=== PATIENT | male | born 1985 | race Caucasian/White ===

== ENCOUNTER 2017-12-13 13:10 | Emergency (ER) | payer BC ==
[~2017-12-13] VITALS: Ht 188 cm; Wt 102.0 kg
[~2017-12-13 13:10] MED LIST: BENADRYL 50MG C50 MG OR; CEPHALEXIN500 MG OR; LORTAB5 PO; NO; PERCOCET1 TA2 PO
[2017-12-13 13:57] LABS: HEMATOCRIT 42.7 % (39.0-50.0); HEMOGLOBIN 13.9 g/dl (14.0-18.0); IMMATURE GRANULOCYTES 0.2 % (0.0-1.0); MEAN CELL VOLUME 87.5 fL CALC (80.0-100.0); MEAN CORPUSCULAR HGB 28.5 pG CALC (26.0-32.0); MEAN CORPUSCULAR HGB CONC 32.6 g/L CALC (32.0-36.0); NEUT# 4.39 thou/uL (1.82-7.42); RED BLOOD COUNT 4.88 mill/uL (4.70-6.10); RED CELL DISTRI WIDTH 12.2 % (11.5-15.5)
[2017-12-13 14:12] LABS: ALBUMIN 4.4 g/dL (3.2-5.0); ALKALINE PHOSPHATASE 63 u/l (38-126); ANION GAP 18 (6-22 (CALC)); BILIRUBIN, TOTAL 0.4 mg/dL (0.0-1.4); BUN 12 mg/dL (9-20); BUN/CREATININE RATIO 15 (12-20 (CALC)); CARBON DIOXIDE 25 mmol/l (22-30); CHLORIDE 104 mmol/l (95-108); CREATININE 0.8 mg/dL (0.7-1.3); GFR > 60 ML/MIN (>=60 (CALC)); GFR FOR AFR.AMER. > 60 ML/MIN (>=60 (CALC)); SGOT/AST 32 u/l (17-59); SGPT/ALT 64 u/l (21-72); SODIUM 143 mmol/l (137-146); TOTAL PROTEIN 7.7 g/dL (6.3-8.2)
[2017-12-13 14:14] LABS: POTASSIUM 4.2 mmol/l (3.5-5.1)
[2017-12-13 15:35] LABS: URINE BILIRUBIN - DIPSTICK NEGATIVE (NEGATIVE); URINE BLOOD DIPSTICK NEGATIVE (NEGATIVE); URINE CLARITY CLEAR; URINE COLOR YELLOW; URINE GLUCOSE - DIPSTICK NEGATIVE (NEGATIVE); URINE KETONE NEGATIVE (NEGATIVE); URINE LEUK ESTERASE NEGATIVE (NEGATIVE); URINE NITRITE - DIPSTICK NEGATIVE (Negative); URINE PROTEIN - DIPSTICK NEGATIVE (NEG-TRACE); URINE UROBILINOGEN - DIPSTICK 0.2 E.U./dL (0.2)
[2017-12-13 17:14] VITALS: BP 136/87
== END 2017-12-13 17:21 | disposition home or self-care (01) | DRG 312 ==
LOC: ED 13:10
PROVIDERS: Family Medicine
DX: R55 Syncope and collapse (principal); R10.32 Left lower quadrant pain; F17.210 Nicotine dependence, cigarettes, uncomplicated
CPT/HCPCS: Q9967

== ENCOUNTER 2020-03-09 13:26 | Emergency (ER) | payer BC ==
[~2020-03-09] VITALS: Ht 188 cm; Wt 90.0 kg
[2020-03-09] MEDS ORDERED: ALPRAZOLAM0.5 M2 PO (13:40)
[2020-03-09] MEDS ORDERED: SILVADENE1 % EX (14:02)
[2020-03-09] MEDS ORDERED: KEFLEX500 M1 PO (14:04)
[2020-03-09 14:15] VITALS: BP 129/71
== END 2020-03-09 14:15 | disposition home or self-care (01) | DRG 935 ==
LOC: ED 13:26
PROC: 2W2EX4Z Dressing of Right Hand using Bandage (ICD-10-PCS; principal; 2020-03-09)
PROC: 2W2CX4Z Dressing of Right Lower Arm using Bandage (ICD-10-PCS; 2020-03-09)
DX: T22.211A Burn of second degree of right forearm, initial encounter (principal); T23.161A Burn of first degree of back of right hand, initial encounter; T31.0 Burns involving less than 10% of body surface; F17.210 Nicotine dependence, cigarettes, uncomplicated; X13.1XXA Other contact with steam and other hot vapors, initial encounter; Y93.89 Activity, other specified; Y92.009 Unspecified place in unspecified non-institutional (private) residence as the place of occurrence of the external cause

== ENCOUNTER 2022-11-30 18:52 | Emergency (ER) | payer BC ==
[~2022-11-30] VITALS: Ht 188 cm; Wt 108.0 kg
[~2022-11-30 18:52] MED LIST changes: +ALPRAZOLAM0.5 M2 PO; +KEFLEX500 M1 PO; +SILVADENE1 % EX
[2022-11-30] MEDS ORDERED: XANAX0.5 MG PO (19:35)
[2022-11-30] MEDS ORDERED: LEXAPRO10 MG PO (19:35)
[2022-11-30] MEDS ORDERED: DEPO-TESTOS200 MG/ML IM (19:36)
[2022-11-30 19:57] VITALS: BP 120/78
[2022-11-30 20:00] VITALS: BP 125/77
[2022-11-30 20:45] VITALS: BP 123/78
[2022-11-30 21:00] VITALS: BP 125/73
[2022-11-30 21:03] VITALS: BP 125/73
== END 2022-11-30 21:05 | disposition home or self-care (01) | DRG 153 ==
LOC: ED 18:52
DX: J06.9 Acute upper respiratory infection, unspecified (principal); F17.210 Nicotine dependence, cigarettes, uncomplicated; Z20.822 Contact with and (suspected) exposure to COVID-19

== ENCOUNTER 2024-05-28 00:35 | Emergency (ER) | payer BC ==
[~2024-05-28] VITALS: Ht 188 cm; Wt 80.0 kg
[~2024-05-28 00:35] MED LIST changes: +DEPO-TESTOS200 MG/ML IM; +LEXAPRO10 MG PO; +XANAX0.5 MG PO
[2024-05-28] MEDS ORDERED: Diph, Acellular Pertussis, Tet 0.5 ML/VIAL (Tdap) SDV IM ONE (00:45)
[2024-05-28] MEDS ORDERED: ceFAZolin Sodium 1 GM in SODIUM CHLORIDE 0.9% 50 ML IV ONE (00:45)
[2024-05-28] MEDS ORDERED: HYDROmorphone HCL 2 MG/AMP IV ONE (00:45)
[2024-05-28 01:00] VITALS: BP 112/58
[2024-05-28 01:30] VITALS: BP 121/63
[2024-05-28] MEDS ORDERED: KEFLEX500 MG PO (01:45)
[2024-05-28 02:00] VITALS: BP 114/73
[2024-05-28 02:18] VITALS: BP 114/73
[2024-05-28] MEDS ORDERED: TRAMADOL HYDROC50 M1 PO (11:11)
== END 2024-05-28 02:18 | disposition home or self-care (01) | DRG 563 ==
LOC: ED 00:35
PROC: 0SSQXZZ Reposition Left Toe Phalangeal Joint, External Approach (ICD-10-PCS; principal; 2024-05-28)
PROC: 0HQNXZZ Repair Left Foot Skin, External Approach (ICD-10-PCS; 2024-05-28)
DX: S93.112A Dislocation of interphalangeal joint of left great toe, initial encounter (principal); S91.112A Laceration without foreign body of left great toe without damage to nail, initial encounter; F10.129 Alcohol abuse with intoxication, unspecified; F17.200 Nicotine dependence, unspecified, uncomplicated; W23.1XXA Caught, crushed, jammed, or pinched between stationary objects, initial encounter; Y93.83 Activity, rough housing and horseplay; Y92.007 Garden or yard of unspecified non-institutional (private) residence as the place of occurrence of the external cause